=== PATIENT | male | born 1995 | race Caucasian/White ===

== ENCOUNTER 2021-07-14 13:56 | Emergency (ER) | payer SELFPAY ==
[~2021-07-14] VITALS: Ht 182.9 cm; Wt 77.1 kg
--- NOTE | 2021-07-14 14:10 | NUR ---
Pt refused visual acuity and eye exam by Dr. [place].
[2021-07-14] MEDS: TETRACAINE HCL 0.5% OPHT DROP 2 ML BOTTLE OP ONE ×2 (14:12→14:29)
[2021-07-14] MEDS: FLUORESCEIN SODIUM 1 MG STRIP OP ONE ×2 (14:12→14:29)
[2021-07-14] MEDS ORDERED: TETRACAINE HCL 0.5% OPHT DROP 2 ML BOTTLE ONE (14:16)
[2021-07-14] MEDS ORDERED: FLUORESCEIN SODIUM 1 MG STRIP ONE (14:17)
[2021-07-14] MEDS ORDERED: LORA10TA7 PO (14:24)
[2021-07-14] MEDS ORDERED: CIPR5DRO EACHEYE (14:24)
--- NOTE | 2021-07-14 14:29 | NUR ---
Patient discharged to home in stable condition. Written and verbal after care instructions given. Patient verbalizes understanding of instructions. Stressed follow up or return to ER for worsening s/s.
== END 2021-07-14 14:30 | disposition home or self-care (01) ==
LOC: ER 13:56
DX: R09.81 Nasal congestion (principal); H57.10 Ocular pain, unspecified eye; Z91.19 Patient's noncompliance with other medical treatment and regimen; J45.909 Unspecified asthma, uncomplicated
CPT/HCPCS: A4663